=== PATIENT | female | born 1940 | race Caucasian/White ===

== ENCOUNTER 2016-09-07 19:30 | Inpatient (IN) | payer MEDICARE, BC ==
[2016-09-07 19:30] VITALS: BMI 29.7
--- NOTE | 2016-09-07 20:44 | C.PDOC ---
History Of Present Illness Patient is a 76 y/o female that presents to the ED for evaluation of left knee and left arm pain s/p fall today. Pt notes taking Aleve at home with no relief. Otherwise, denies any extremity weakness/numbness, skin changes, fever, or any other associated symptoms at this time. Time Seen by Provider: 09/07/16 20:15 Chief Complaint (Nursing): Lower Extremity Problem/Injury History Per: Patient History/Exam Limitations: no limitations Onset/Duration Of Symptoms: Days Current Symptoms Are (Timing): Still Present Recent travel outside of the [place]: No Additional History Per: Patient - Knee Description Of Injury: Fell Past Medical History Reviewed: Historical Data, Nursing Documentation, Vital Signs Vital Signs: Last Vital Signs Temp 98.0 F 09/07/16 19:45 Pulse 20 L 09/07/16 19:45 Resp BP 193/106 H 09/07/16 19:45 Pulse Ox 94 L 09/07/16 22:11 - Medical History PMH: Arthritis, Fractures (LEFT WRIST), Osteoporosis Denies: HIV, Chronic Kidney Disease - [facility] Procedures APPLICATION OF SPLINT (02/19/14) CL REDUC DISLOC-WRIST (02/19/14) INJECT/INFUSE NEC (02/19/14) OP RED-INT FIX RAD/ULNA (03/11/14) Family History: States: Unknown Family Hx - Social History Hx Alcohol Use: No Hx Substance Use: No Review Of Systems Except As Marked, All Systems Reviewed And Found Negative. Constitutional: Negative for: Fever, Chills Cardiovascular: Negative for: Chest Pain, Palpitations Respiratory: Negative for: Cough, Shortness of Breath Gastrointestinal: Negative for: Nausea, Vomiting, Abdominal Pain Musculoskeletal: Positive for: Arm Pain (left), Leg Pain (left knee pain). Negative for: Shoulder Pain, Hand Pain, Foot Pain Skin: Negative for: Rash, Bruising Neurological: Negative for: Weakness, Numbness, Headache, Dizziness Physical Exam - Physical Exam Appears: Non-toxic, No Acute Distress Skin: Normal Color, Warm, Dry Head: Atraumatic, Normacephalic Eye(s): bilateral: Normal Inspection Neck: Normal ROM, Supple Chest: Symmetrical Extremity: Normal ROM (FROM of left wrist, left elbow, and left knee. ), Tenderness (tenderness to lateral aspect of left knee upon palpation; tenderness to left mid forearm, elbow, and mid humerus), No Pedal Edema, Capillary Refill (< 2 sec.), No Deformity, No Swelling (no swelling, warmth, or erythema to left knee, or left arm) Extremity: Bilateral: Normal Color And Temperature, Normal ROM Pulses: Left Radial: Normal, Right Radial: Normal, Left Dorsalis Pedis: Normal, Right Dorsalis Pedis: Normal Neurological/Psych: Oriented x3, Normal Speech, Normal Cognition, Normal Motor, Normal Sensation ED Course And Treatment O2 Sat by Pulse Oximetry: 94 (on RA) Pulse Ox Interpretation: Normal Progress Note: Blood work, left knee/elbow/forearm/humerus x-ray ordered and reviewed. Patient was given Toradol. - Scribe Statement The provider has reviewed the documentation as recorded by the Scribe Starr Patton All medical record entries made by the Scribe were at my direction and personally dictated by me. I have reviewed the chart and agree that the record accurately reflects my personal performance of the history, physical exam, medical decision making, and the department course for this patient. I have also personally directed, reviewed, and agree with the discharge instructions and disposition.
[2016-09-07 22:37] LABS: BASO % 0.5 % (0.0-2.0); EOS # 0.1 K/uL (0.0-0.7); HEMOGLOBIN 14.5 g/dL (11.0-16.0); LYMPH # 1.5 K/uL (1.0-4.3); LYMPH % 15.5 % (20.0-40.0); MEAN CELL VOLUME 88.7 fL (81.0-99.0); MEAN CORPUSCULAR HEMOGLOBIN 29.7 pg (27.0-31.0); MEAN CORPUSCULAR HGB CONC 33.5 g/dL (33.0-37.0); MEAN PLATELET VOLUME 7.8 fL (7.2-11.7); MONO # 0.6 K/uL (0.0-0.8); MONO % 6.7 % (0.0-10.0); NEUT # 7.4 K/uL (1.8-7.0); NEUT % 76.3 % (50.0-75.0); NRBC % 0.1 % (0.0-2.0); RBC 4.89 Mil/uL (3.80-5.20); RED CELL DISTRIBUTION WIDTH 14.2 % (11.5-14.5); WHITE BLOOD COUNT 9.6 K/uL (4.8-10.8)
[2016-09-07 22:44] LABS: ALBUMIN 4.3 g/dL (3.5-5.0)
[2016-09-07 22:47] LABS: ALB/GLOB RATIO 1.3 (1.0-2.1); ALT/SGPT 31 U/L (9-52); AST/SGOT 25 U/L (14-36); BLOOD UREA NITROGEN 15 mg/dL (7-17); GFR AFRICAN-AMERICAN > 60; GFR NON-AFRICAN AMERICAN > 60
[2016-09-07 22:48] LABS: CALCIUM 9.4 mg/dl (8.6-10.4)
[2016-09-07] MEDS ORDERED: Oxycodone/Acetaminophen 5/325 mg Tab PO PRN (23:54)
[2016-09-08] MEDS: Enoxaparin 40 mg Syringe SC SCH (09:04)
--- NOTE | 2016-09-08 09:22 | RAD ---
PROCEDURE: Radiographs of the left elbow. HISTORY: fall pain COMPARISON: No prior. FINDINGS: BONES: Normal. No fracture. JOINTS: Normal. No osteoarthritis. SOFT TISSUES: Normal. JOINT EFFUSION: None. OTHER FINDINGS: None IMPRESSION: Unremarkable radiographs of the left elbow.
--- NOTE | 2016-09-08 09:26 | RAD ---
PROCEDURE: Radiographs of the Left Forearm HISTORY: fall pain COMPARISON: None available. TECHNIQUE: Frontal and lateral views obtained. FINDINGS: BONES: No acute fracture. Age indeterminate fracture distal radius. JOINT SPACES: Unremarkable. OTHER FINDINGS: None. IMPRESSION: No acute findings related to/accounting for the clinical presentation.
--- NOTE | 2016-09-08 09:30 | RAD ---
PROCEDURE: Radiographs of the left humerus. HISTORY: fall pain COMPARISON: None. FINDINGS: BONES: Normal. No fracture or focal lesion. SOFT TISSUES: Normal. OTHER FINDINGS: None. IMPRESSION: No acute findings related to/accounting for the clinical presentation. No preliminary report provided by emergency department personnel.
[2016-09-08] MEDS ORDERED: Oxycodone/Acetaminophen 5/325 mg Tab PO PRN (11:44)
--- NOTE | 2016-09-08 12:34 | RAD ---
PROCEDURE: Left Knee Radiographs. HISTORY: Pain. COMPARISON: None. FINDINGS: BONES: Normal. No fracture. Diffuse osteopenia suggests osteoporosis. JOINTS: Normal. Moderate patellofemoral osteoarthritis is manifest by irregular cortical sclerosis. JOINT EFFUSION: None. OTHER FINDINGS: Vascular soft tissue calcifications are identified posteriorly. Send. IMPRESSION: Mild osteoarthritis. Diffuse osteopenia suggests osteoporosis. No acute fracture or dislocation identified.
--- NOTE | 2016-09-08 23:16 | CP.PCM.HP ---
History of Present Illness - History of Present Illness History of Present Illness: CC: intractable left knee pain HPI: Patient is a 76 y/o female who had no significant PMH, presents to the ED for evaluation of left knee and left arm pain s/p fall today since then she cannot walk and have left knee swelling and crepitations. Pt notes taking Aleve at home with no relief. Otherwise, denies any extremity weakness/numbness, skin changes, fever, or any other associated symptoms at this time.pt has allergies to multiple pain medications Present on Admission - Present on Admission Any Indicators Present on Admission: Yes Review of Systems - Review of Systems Systems not reviewed;Unavailable: Acuity of Condition All systems: reviewed and no additional remarkable complaints except (pain & swelling in left knee) Past Patient History - Infectious Disease Hx of Infectious Diseases: None - Past Medical History & Family History Past Medical History?: Yes - Past Social History Smoking Status: Former Smoker - CARDIAC Hx Cardiac Disorders: No - PULMONARY Hx Respiratory Disorders: No - NEUROLOGICAL Hx Neurological Disorder: No - HEENT Hx HEENT Problems: No Hx Cataracts: Yes Hx Glaucoma: Yes - RENAL Hx Chronic Kidney Disease: No - ENDOCRINE/METABOLIC Hx Endocrine Disorders: No - HEMATOLOGICAL/ONCOLOGICAL Hx Human Immunodeficiency Virus (HIV): No - INTEGUMENTARY Hx Dermatological Problems: No - MUSCULOSKELETAL/RHEUMATOLOGICAL Hx Falls: Yes - GASTROINTESTINAL Hx Gastrointestinal Disorders: No - GENITOURINARY/GYNECOLOGICAL Hx Genitourinary Disorders: No - PSYCHIATRIC Hx Substance Use: No - SURGICAL HISTORY Hx Surgeries: Yes Hx Cataract Extraction: Yes (BILAT IOL) - ANESTHESIA Hx Anesthesia: Yes Hx Anesthesia Reactions: No Hx Malignant Hyperthermia: No Meds Allergies/Adverse Reactions: Allergies Allergy/AdvReac Type Severity Reaction Status Date / Time acetaminophen [From Percocet] AdvReac Verified 09/07/16 20:52 metronidazole [From Flagyl] AdvReac Verified 09/07/16 20:50 oxycodone [From Percocet] AdvReac Verified 09/07/16 20:52 Physical Exam - Constitutional Appears: In Acute Distress Additional comments: moderate pain, inability to walk - Eye Exam Eye Exam: EOMI, Normal appearance, PERRL Pupil Exam: NORMAL ACCOMODATION, PERRL - Neck Exam Neck exam: Positive for: Normal Inspection - Respiratory Exam Respiratory Exam: Clear to Auscultation Bilateral, NORMAL BREATHING PATTERN - Cardiovascular Exam Cardiovascular Exam: REGULAR RHYTHM - GI/Abdominal Exam GI & Abdominal Exam: Normal Bowel Sounds, Soft. absent: Tenderness - Rectal Exam Rectal Exam: Deferred - Extremities Exam Additional comments: Normal ROM (FROM of left wrist, left elbow, and left knee. ), Tenderness ( tenderness to lateral aspect of left knee upon palpation; tenderness to left mid forearm, elbow, and mid humerus), No Pedal Edema, Capillary Refill (< 2 sec. ), No Deformity, left knee has swelling, absence of hollow on medial aspect of left knee Results - Vital Signs Recent Vital Signs: Last Vital Signs Temp 98.6 F 09/08/16 15:15 Pulse 82 09/08/16 15:15 Resp 20 09/08/16 15:15 BP 144/81 09/08/16 15:15 Pulse Ox 96 09/08/16 15:15 - Labs Result Diagrams: 09/07/16 22:18 09/07/16 22:18 Labs: Laboratory Results - last 24 hr 09/08/16 09/08/16 09/08/16 08:34 08:34 08:34 ESR 15 Uric Acid 3.1 Rheum Arthritis Panel Negative Assessment & Plan (1) Traumatic arthritis of knee Assessment and Plan: rule out torn anterior cruciate ligament orthopedics consult i Discussed the case with Status: Acute
[2016-09-09] MEDS ORDERED: Pneumococcal 23-Valent Vaccine IM ONE (10:00)
[2016-09-09] MEDS: Enoxaparin 40 mg Syringe SC SCH (10:11)
[2016-09-09] MEDS: Lidocaine 5% Patch TD SCH (14:55)
--- NOTE | 2016-09-09 21:44 | CT ---
EXAM: CT Left Lower Extremity Without Intravenous Contrast, Knee CLINICAL HISTORY: 76 years old, female; Pain; Knee; Left; Additional info: L knee pain TECHNIQUE: Axial computed tomography images of the left knee without intravenous contrast. This CT exam was performed using one or more of the following dose reduction techniques: automated exposure control, adjustment of the mA and/or kV according to patient size, and/or use of iterative reconstruction technique. Coronal and sagittal reformatted images were created and reviewed. COMPARISON: No relevant prior studies available. FINDINGS: Small joint effusion. Evidence of cortical disruption involving the medial tibial spine concerning for fracture. Evidence of additional subtle irregularity involving anterior lateral tibial plateau. Enthesophyte formation involving the patella. No dislocation. Osteopenia/osteoporosis. Vascular calcification. IMPRESSION: Evidence of cortical disruption involving the medial tibial spine concerning for fracture. Evidence of additional subtle irregularity involving anterior lateral tibial plateau. Small joint effusion. MRI can provide more sensitive evaluation for bone marrow edema as well as evaluation for soft tissue injury. Additional details/findings as above.
--- NOTE | 2016-09-10 01:39 | CP.PCM.PN ---
Subjective - Date & Time of Evaluation Date of Evaluation: 09/09/16 Time of Evaluation: 21:00 - Subjective Subjective: pT SEEN AND EXAMINED, IS IMPROVING Objective - Vital Signs/Intake and Output Vital Signs (last 24 hours): Temp Pulse Resp BP Pulse Ox 98.7 F 107 H 20 131/73 95 09/09/16 23:15 09/09/16 23:15 09/09/16 23:15 09/09/16 23:15 09/09/16 23:15 Intake and Output: 09/09/16 09/10/16 18:59 06:59 Intake Total 300 Output Total 500 Balance -200 - Medications Medications: Current Medications Enoxaparin Sodium (Lovenox) 40 mg SC DAILY [facility] Last Admin: 09/09/16 10:11 Dose: 40 mg Gabapentin (Neurontin) 300 mg PO BID [facility] Ibuprofen (Motrin Tab) 600 mg PO TID PRN PRN Reason: Pain, moderate (4-7) Last Admin: 09/09/16 22:48 Dose: 600 mg Lidocaine (Lidoderm) 1 ea TD DAILY [facility] Last Admin: 09/09/16 14:55 Dose: 1 ea Losartan Potassium (Cozaar) 25 mg PO DAILY [facility] Last Admin: 09/09/16 10:11 Dose: 25 mg Zolpidem Tartrate (Ambien) 5 mg PO HS PRN PRN Reason: Insomnia Last Admin: 09/09/16 22:49 Dose: 5 mg Assessment and Plan (1) Traumatic arthritis of knee Status: Acute
[2016-09-10] MEDS: Enoxaparin 40 mg Syringe SC SCH (09:31)
[2016-09-10] MEDS: Lidocaine 5% Patch TD SCH (09:40)
[2016-09-10] MEDS ORDERED: Ergocalciferol 50,000 Intl Units Cap PO SCH ×2 (17:45→18:00)
--- NOTE | 2016-09-10 21:40 | CP.PCM.PN ---
Subjective - Date & Time of Evaluation Date of Evaluation: 09/10/16 Time of Evaluation: 10:20 - Subjective Subjective: Pt seen and examined, charts and labs reviewed is improving Objective - Vital Signs/Intake and Output Vital Signs (last 24 hours): Temp Pulse Resp BP Pulse Ox 98.9 F 93 H 20 135/75 96 09/10/16 15:37 09/10/16 15:37 09/10/16 15:37 09/10/16 15:37 09/10/16 15:37 - Medications Medications: Current Medications Enoxaparin Sodium (Lovenox) 40 mg SC DAILY [facility] Last Admin: 09/10/16 09:31 Dose: 40 mg Ergocalciferol (Drisdol 50,000 Intl Units Cap) 1 cap PO Q7D [facility] Last Admin: 09/10/16 17:53 Dose: 1 cap Gabapentin (Neurontin) 300 mg PO BID [facility] Last Admin: 09/10/16 17:53 Dose: 300 mg Ibuprofen (Motrin Tab) 600 mg PO TID PRN PRN Reason: Pain, moderate (4-7) Last Admin: 09/10/16 19:54 Dose: 600 mg Lactulose (Enulose) 20 gm PO HS [facility] Lidocaine (Lidoderm) 1 ea TD DAILY [facility] Last Admin: 09/10/16 09:40 Dose: 1 ea Losartan Potassium (Cozaar) 25 mg PO DAILY [facility] Last Admin: 09/10/16 09:31 Dose: 25 mg Zolpidem Tartrate (Ambien) 5 mg PO HS PRN PRN Reason: Insomnia Last Admin: 09/09/16 22:49 Dose: 5 mg Assessment and Plan (1) Traumatic arthritis of knee Status: Acute
[2016-09-11] MEDS: Enoxaparin 40 mg Syringe SC SCH (10:04)
[2016-09-11] MEDS: Lidocaine 5% Patch TD SCH (10:05)
--- NOTE | 2016-09-11 11:52 | MRI ---
MRI left knee History: Intractable pain. Injury. Comparison: 09/09/2016 Technique: Multi-echo multiplanar sequences were performed through the left knee without the use of intravenous contrast. Findings: Thinning and fraying with increased signal seen within the proximal and midportion of the anterior cruciate ligament suggestive for partial tearing with an associated interstitial delamination and moderate to high grade sprain. Posterior cruciate ligament is preserved. Globular grade 2 intrasubstance degeneration/partial intrasubstance tearing in the posterior horn of the medial meniscus. Linear grade 1 intrasubstance degeneration and or partial intrasubstance tearing in the posterior horn the lateral meniscus. Medial collateral ligament is preserved. High-grade strain versus partial tearing of the fibular collateral ligament. High grade strain of the biceps femoris tendon attachment. Moderate to high grade strain of the popliteus tendon. Quadriceps tendon is preserved. Patellar tendon is preserved. Moderate grade strain of the lateral patellar retinaculum. Patellar cartilage is preserved. Mild to moderate cartilage thinning and loss involving the femorotibial joint space. Moderate suprapatellar joint effusion. Small posterior Pelletier's cyst. Curvilinear decreased T1 signal with exuberant surrounding reactive edema seen within the posterior lateral femoral condyle at the articular surface suggestive for subchondral fracturing versus stress injury versus severe osteochondral change versus additional etiology. Milder signal abnormality seen at the medial tibial spine at the proximal tibia at the articular surface also suggestive for small subchondral osseous injury and or stress injury and or osteochondral change. Clinical correlation. Lobulated 2 centimeter focal area of signal abnormality seen within the distal medullary cavity of the distal femur with adjacent 7 millimeter rounded focal area of signal abnormality. These findings may represent focal chondroid lesions versus focal avascular necrosis versus additional etiology. Clinical correlation. Impression: 1. Curvilinear decreased T1 signal with exuberant surrounding reactive edema seen within the posterior lateral femoral condyle at the articular surface suggestive for subchondral fracturing versus stress injury versus severe osteochondral change versus additional etiology. 2. Milder signal abnormality seen at the medial tibial spine at the proximal tibia at the articular surface also suggestive for small subchondral osseous injury and or stress injury and or osteochondral change. Clinical correlation. 3. Lobulated 2 centimeter focal area of signal abnormality seen within the distal medullary cavity of the distal femur with adjacent 7 millimeter rounded focal area of signal abnormality. These findings may represent focal chondroid lesions versus focal avascular necrosis versus additional etiology. Clinical correlation. 4. Thinning and fraying with increased signal seen within the proximal and midportion of the anterior cruciate ligament suggestive for partial tearing with an associated interstitial delamination and moderate to high grade sprain. 5. Globular grade 2 intrasubstance degeneration/partial intrasubstance tearing in the posterior horn of the medial meniscus. 6. Linear grade 1 intrasubstance degeneration and or partial intrasubstance tearing in the posterior horn the lateral meniscus. 7. High-grade strain versus partial tearing of the fibular collateral ligament. High grade strain of the biceps femoris tendon attachment. Moderate to high grade strain of the popliteus tendon. 8. Moderate grade strain of the lateral patellar retinaculum. 9. Mild to moderate cartilage thinning and loss involving the femorotibial joint space. 10. Moderate suprapatellar joint effusion. 11. Small posterior Pelletier's cyst.
--- NOTE | 2016-09-11 14:16 | CP.PCM.PN ---
Subjective - Date & Time of Evaluation Date of Evaluation: 09/11/16 Time of Evaluation: 20:00 - Subjective Subjective: Pt seen and examined, c/o left knee pain, is for MRI of knee and orthopedic eval Objective - Vital Signs/Intake and Output Vital Signs (last 24 hours): Temp Pulse Resp BP Pulse Ox 97.4 F L 91 H 80 H 143/81 95 09/11/16 07:25 09/11/16 07:25 09/11/16 07:25 09/11/16 07:25 09/11/16 07:25 Intake and Output: 09/11/16 09/11/16 06:59 18:59 Intake Total 240 Balance 240 - Medications Medications: Current Medications Enoxaparin Sodium (Lovenox) 40 mg SC DAILY [facility] Last Admin: 09/11/16 10:04 Dose: 40 mg Ergocalciferol (Drisdol 50,000 Intl Units Cap) 1 cap PO Q7D [facility] Last Admin: 09/10/16 17:53 Dose: 1 cap Gabapentin (Neurontin) 300 mg PO BID [facility] Last Admin: 09/11/16 10:04 Dose: 300 mg Ibuprofen (Motrin Tab) 600 mg PO TID PRN PRN Reason: Pain, moderate (4-7) Last Admin: 09/11/16 07:13 Dose: 600 mg Lactulose (Enulose) 20 gm PO HS [facility] Last Admin: 09/10/16 22:15 Dose: Not Given Lidocaine (Lidoderm) 1 ea TD DAILY [facility] Last Admin: 09/11/16 10:05 Dose: 1 ea Losartan Potassium (Cozaar) 25 mg PO DAILY [facility] Last Admin: 09/11/16 10:04 Dose: 25 mg Zolpidem Tartrate (Ambien) 5 mg PO HS PRN PRN Reason: Insomnia Last Admin: 09/11/16 01:24 Dose: 5 mg Assessment and Plan (1) Traumatic arthritis of knee Status: Acute
--- NOTE | 2016-09-12 08:03 | CP.PCM.PN ---
Subjective - Date & Time of Evaluation Date of Evaluation: 09/12/16 Time of Evaluation: 08:01 - Subjective Subjective: Patient states pain in her knee is more controlled now. When asked about her toe , she says she hit it, but only has a little pain. Review of Systems - Review of Systems All systems: reviewed and no additional remarkable complaints except - Cardiovascular Cardiovascular: UNREMARKABLE - Respiratory Respiratory: UNREMARKABLE - Gastrointestinal Gastrointestinal: UNREMARKABLE - Musculoskeletal Musculoskeletal: As Par HPI - Integumentary Integumentary: As Per HPI - Neurological Neurological: UNREMARKABLE - Hematologic/Lymphatic Hematologic: UNREMARKABLE Objective - Vital Signs/Intake and Output Vital Signs (last 24 hours): Temp Pulse Resp BP Pulse Ox 97.4 F L 86 18 159/89 H 95 09/12/16 07:10 09/12/16 07:10 09/12/16 07:10 09/12/16 07:10 09/12/16 07:10 - Medications Medications: Current Medications Enoxaparin Sodium (Lovenox) 40 mg SC DAILY [facility] Last Admin: 09/11/16 10:04 Dose: 40 mg Ergocalciferol (Drisdol 50,000 Intl Units Cap) 1 cap PO Q7D [facility] Last Admin: 09/10/16 17:53 Dose: 1 cap Gabapentin (Neurontin) 300 mg PO BID [facility] Last Admin: 09/11/16 18:22 Dose: 300 mg Ibuprofen (Motrin Tab) 600 mg PO TID PRN PRN Reason: Pain, moderate (4-7) Last Admin: 09/11/16 22:01 Dose: 600 mg Lactulose (Enulose) 20 gm PO HS [facility] Last Admin: 09/11/16 22:02 Dose: Not Given Lidocaine (Lidoderm) 1 ea TD DAILY [facility] Last Admin: 09/11/16 10:05 Dose: 1 ea Losartan Potassium (Cozaar) 25 mg PO DAILY [facility] Last Admin: 09/11/16 10:04 Dose: 25 mg Zolpidem Tartrate (Ambien) 5 mg PO HS PRN PRN Reason: Insomnia Last Admin: 09/11/16 22:01 Dose: 5 mg - Constitutional Appears: Well, No Acute Distress - Head Exam Head Exam: ATRAUMATIC - Respiratory Exam Respiratory Exam: NORMAL BREATHING PATTERN - Cardiovascular Exam Additional comments: +DP/PT pulse LLE - Extremities Exam Additional comments: Sensation intact LLE, TTP left knee, knee immobilizer intact, calve ssoft NT neg homans - Neurological Exam Neurological Exam: Alert, Awake, Oriented x3 Neuro motor strength exam: Left Lower Extremity: 5 (ankle DF/PF) - Psychiatric Exam Psychiatric exam: Normal Affect, Normal Mood - Skin Skin Exam: Dry, Intact, Normal Color, Warm Additional comments: to knee, normal color left 2nd toe at DIP joint ecchymotic, swollen, mildly tender, +Flex/ext Assessment and Plan (1) Stress fracture, left femur, subsequent encounter for fracture with delayed healing Assessment & Plan: Knee immobilizer strict NWB at at times non operative per Dr. Dietz orthopedically stable for d/c VTE proph d/w Dr. Dietz, agrees with above Status: Acute (2) Closed fracture of left tibial plateau Status: Acute (3) Toe pain, left Assessment & Plan: XRAYS, r/o fx Status: Acute Radiology Interpretation - Geriatric Nurse Assistant Geriatric Nurse Assistant:: Radiologist - Radiology Interpretation #2 Interpretation: Patient Name / ID : VIRIDIANA MCDONALD / [id number] Exam Date : 09/11/2016 09:30:40 ( Approved ) Study Comment : Sex / Age : F / 76Y Creator : Jordon Ray MD Dictator : Jordon Ray MD Medical Microbiologist : Fire Observer : Jordon Ray MD Approver2 : Report Date : 09/11/2016 11:51:12 My Comment : MRI left knee History: Intractable pain. Injury. Comparison: 09/09/2016 Technique: Multi-echo multiplanar sequences were performed through the left knee without the use of intravenous contrast. Findings: Thinning and fraying with increased signal seen within the proximal and midportion of the anterior cruciate ligament suggestive for partial tearing with an associated interstitial delamination and moderate to high grade sprain. Posterior cruciate ligament is preserved. Globular grade 2 intrasubstance degeneration/partial intrasubstance tearing in the posterior horn of the medial meniscus. Linear grade 1 intrasubstance degeneration and or partial intrasubstance tearing in the posterior horn the lateral meniscus. Medial collateral ligament is preserved. High-grade strain versus partial tearing of the fibular collateral ligament. High grade strain of the biceps femoris tendon attachment. Moderate to high grade strain of the popliteus tendon. Quadriceps tendon is preserved. Patellar tendon is preserved. Moderate grade strain of the lateral patellar retinaculum. Patellar cartilage is preserved. Mild to moderate cartilage thinning and loss involving the femorotibial joint space. Moderate suprapatellar joint effusion. Small posterior Pelletier's cyst. Curvilinear decreased T1 signal with exuberant surrounding reactive edema seen within the posterior lateral femoral condyle at the articular surface suggestive for subchondral fracturing versus stress injury versus severe osteochondral change versus additional etiology. Milder signal abnormality seen at the medial tibial spine at the proximal tibia at the articular surface also suggestive for small subchondral osseous injury and or stress injury and or osteochondral change. Clinical correlation. Lobulated 2 centimeter focal area of signal abnormality seen within the distal medullary cavity of the distal femur with adjacent 7 millimeter rounded focal area of signal abnormality. These findings may represent focal chondroid lesions versus focal avascular necrosis versus additional etiology. Clinical correlation. Impression: 1. Curvilinear decreased T1 signal with exuberant surrounding reactive edema seen within the posterior lateral femoral condyle at the articular surface suggestive for subchondral fracturing versus stress injury versus severe osteochondral change versus additional etiology. 2. Milder signal abnormality seen at the medial tibial spine at the proximal tibia at the articular surface also suggestive for small subchondral osseous injury and or stress injury and or osteochondral change. Clinical correlation. 3. Lobulated 2 centimeter focal area of signal abnormality seen within the distal medullary cavity of the distal femur with adjacent 7 millimeter rounded focal area of signal abnormality. These findings may represent focal chondroid lesions versus focal avascular necrosis versus additional etiology. Clinical correlation. 4. Thinning and fraying with increased signal seen within the proximal and midportion of the anterior cruciate ligament suggestive for partial tearing with an associated interstitial delamination and moderate to high grade sprain. 5. Globular grade 2 intrasubstance degeneration/partial intrasubstance tearing in the posterior horn of the medial meniscus. 6. Linear grade 1 intrasubstance degeneration and or partial intrasubstance tearing in the posterior horn the lateral meniscus. 7. High-grade strain versus partial tearing of the fibular collateral ligament. High grade strain of the biceps femoris tendon attachment. Moderate to high grade strain of the popliteus tendon. 8. Moderate grade strain of the lateral patellar retinaculum. 9. Mild to moderate cartilage thinning and loss involving the femorotibial joint space. 10. Moderate suprapatellar joint effusion. 11. Small posterior Pelletier's cyst. atient Name / ID : VIRIDIANA MCDONALD / [id number] Exam Date : 09/09/2016 20:41:30 ( Approved ) Study Comment : Sex / Age : F / 76Y Creator : Sandra Naidu MD Dictator : Medical Microbiologist : Fire Observer : Sandra Naidu MD Approver2 : Report Date : 09/09/2016 21:44:00 My Comment : [facility] Division of Radiology [address] [place] [address] Tel. no. Patient Name: HARRY KEMP Pt. Address: [address] [place] [address] Rec #: [id number] [place] [address]: Mirela LENNON, Moon Tovar Pt Order Location: [facility] : 1940 Female Age: 76 Order #: [id number] Reason for exam: L knee pain CT Scan EXT LOWER W/O CONTRAST LEFT Exam Date: 09/09/16 This imaging exam was performed at [facility] EXAM: CT Left Lower Extremity Without Intravenous Contrast, Knee CLINICAL HISTORY: 76 years old, female; Pain; Knee; Left; Additional info: L knee pain TECHNIQUE: Axial computed tomography images of the left knee without intravenous contrast. This CT exam was performed using one or more of the following dose reduction techniques: automated exposure control, adjustment of the mA and/or kV according to patient size, and/or use of iterative reconstruction technique. Coronal and sagittal reformatted images were created and reviewed. COMPARISON: No relevant prior studies available. FINDINGS: Small joint effusion. Evidence of cortical disruption involving the medial tibial spine concerning for fracture. Evidence of additional subtle irregularity involving anterior lateral tibial plateau. Enthesophyte formation involving the patella. No dislocation. Osteopenia/osteoporosis. Vascular calcification. IMPRESSION: Evidence of cortical disruption involving the medial tibial spine concerning for fracture. Evidence of additional subtle irregularity involving anterior lateral tibial plateau. Small joint effusion. MRI can provide more sensitive evaluation for bone marrow edema as well as evaluation for soft tissue injury. Additional details/findings as above. Dictated By: Sandra Naidu MD Dictated Date/Time: 09/09/162143 Signed By: Sandra Naidu Date Signed: [id number] Transcribed By: [facility] Transcribe Date/Time : 09/09/162143 TAMIA/RAN
[2016-09-12] MEDS: Lidocaine 5% Patch TD SCH (10:55)
[2016-09-12] MEDS: Enoxaparin 40 mg Syringe SC SCH (10:55)
--- NOTE | 2016-09-12 11:48 | RAD ---
PROCEDURE: Radiographs of the right 2nd toe HISTORY: pain, ecchymosis COMPARISON: None TECHNIQUE: AP, oblique and lateral radiographs of the 2nd toe. FINDINGS: There is question of an acute nondisplaced fracture in the lateral base of the middle phalanx of the 2nd toe.There is diffuse bone demineralization. Bone alignment is normal. There is mild soft tissue swelling IMPRESSION: Question of acute nondisplaced fracture in the lateral base of the middle phalanx of the 2nd toe.
--- NOTE | 2016-09-12 12:28 | CP.PCM.PN ---
Subjective - Date & Time of Evaluation Date of Evaluation: 09/12/16 Time of Evaluation: 11:00 - Subjective Subjective: Pt seen and examined today, c/o left knee pain, improved and better controlled than yesterday, denies any numbness/tingling on LE No overnight events reported by RN Objective - Vital Signs/Intake and Output Vital Signs (last 24 hours): Temp Pulse Resp BP Pulse Ox 97.4 F L 86 18 159/89 H 95 09/12/16 07:10 09/12/16 07:10 09/12/16 07:10 09/12/16 07:10 09/12/16 07:10 - Medications Medications: Current Medications Enoxaparin Sodium (Lovenox) 40 mg SC DAILY [facility] Last Admin: 09/12/16 10:55 Dose: 40 mg Ergocalciferol (Drisdol 50,000 Intl Units Cap) 1 cap PO Q7D [facility] Last Admin: 09/10/16 17:53 Dose: 1 cap Gabapentin (Neurontin) 300 mg PO BID [facility] Last Admin: 09/12/16 10:56 Dose: 300 mg Ibuprofen (Motrin Tab) 600 mg PO TID PRN PRN Reason: Pain, moderate (4-7) Last Admin: 09/12/16 10:59 Dose: 600 mg Lactulose (Enulose) 20 gm PO HS [facility] Last Admin: 09/11/16 22:02 Dose: Not Given Lidocaine (Lidoderm) 1 ea TD DAILY [facility] Last Admin: 09/12/16 10:55 Dose: 1 ea Losartan Potassium (Cozaar) 25 mg PO DAILY [facility] Last Admin: 09/12/16 10:56 Dose: 25 mg Zolpidem Tartrate (Ambien) 5 mg PO HS PRN PRN Reason: Insomnia Last Admin: 09/11/16 22:01 Dose: 5 mg - Constitutional Appears: Well, No Acute Distress - Respiratory Exam Respiratory Exam: Clear to Ausculation Bilateral, NORMAL BREATHING PATTERN - Cardiovascular Exam Cardiovascular Exam: REGULAR RHYTHM, +S2 - Extremities Exam Extremities Exam: Tenderness (left LE , knee BRACE IN PLACE ) - Neurological Exam Neurological Exam: Alert, Awake, Oriented x3 Assessment and Plan - Assessment and Plan (Free Text) Assessment: A/P 76 yr old female admitted for left knee pain s/p fall MRI- LE -. 1urvilinear decreased T1 signal with exuberant surrounding reactive edema seen within the posterior lateral femoral condyle at the articular surface suggestive for subchondral fracturing versus stress injury versus severe osteochondral change versus additional etiology. 2. Milder signal abnormality seen at the medial tibial spine at the proximal tibia at the articular surface also suggestive for small subchondral osseous injury and or stress injury and or osteochondral change. Clinical correlation. 3. Lobulated 2 centimeter focal area of signal abnormality seen within the distal medullary cavity of the distal femur with adjacent 7 millimeter rounded focal area of signal abnormality. These findings may represent focal chondroid lesions versus focal avascular necrosis versus additional etiology. Clinical correlation. 4. Thinning and fraying with increased signal seen within the proximal and midportion of the anterior cruciate ligament suggestive for partial tearing with an associated interstitial delamination and moderate to high grade sprain. 5. Globular grade 2 intrasubstance degeneration/partial intrasubstance tearing in the posterior horn of the medial meniscus. 6. Linear grade 1 intrasubstance degeneration and or partial intrasubstance tearing in the posterior horn the lateral meniscus. 7. High-grade strain versus partial tearing of the fibular collateral ligament. High grade strain of the biceps femoris tendon attachment. Moderate to high grade strain of the popliteus tendon. 8. Moderate grade strain of the lateral patellar retinaculum. 9. Mild to moderate cartilage thinning and loss involving the femorotibial joint space. 10. Moderate suprapatellar joint effusion. 11. Small posterior Pelletier's cyst. seen by Dr. Orlando non operative per Dr. Dietz and orthopedically stable for d/c, keep Knee immobilizer strict NWB at at times and orthopedically stable for d/c Pt accepted at [facility] for rehab d/W with Dr. Shelton, stable for discharge to [facility] and Dr. Shelton will follow the patient at [facility]
[2016-09-12 16:32] VITALS: BP 127/68; PULSE 77; RESP 20; TEMP 98.3; O2SAT 94
--- NOTE | 2016-09-12 22:31 | CP.PCM.DIS ---
Provider - Provider Date of Admission: 09/09/16 11:45 Attending physician: Corbin Shelton MD Time Spent in preparation of Discharge (in minutes): 45 Diagnosis - Discharge Diagnosis (1) Traumatic arthritis of knee Status: Acute Hospital Course - Lab Results Lab Results: Most Recent Lab Values WBC 9.6 K/uL (4.8-10.8) D 09/07/16 22:18 RBC 4.89 Mil/uL (3.80-5.20) 09/07/16 22:18 Hgb 14.5 g/dL (11.0-16.0) 09/07/16 22:18 Hct 43.4 % (34.0-47.0) 09/07/16 22:18 MCV 88.7 fL (81.0-99.0) D 09/07/16 22:18 MCH 29.7 pg (27.0-31.0) 09/07/16 22:18 MCHC 33.5 g/dL (33.0-37.0) 09/07/16 22:18 RDW 14.2 % (11.5-14.5) 09/07/16 22:18 Plt Count 216 K/uL (130-400) 09/07/16 22:18 MPV 7.8 fL (7.2-11.7) 09/07/16 22:18 Neut % (Auto) 76.3 % (50.0-75.0) H 09/07/16 22:18 Lymph % (Auto) 15.5 % (20.0-40.0) L 09/07/16 22:18 Grayson % (Auto) 6.7 % (0.0-10.0) 09/07/16 22:18 Eos % (Auto) 1.0 % (0.0-4.0) 09/07/16 22:18 Baso % (Auto) 0.5 % (0.0-2.0) 09/07/16 22:18 Neut # 7.4 K/uL (1.8-7.0) H 09/07/16 22:18 Lymph # 1.5 K/uL (1.0-4.3) 09/07/16 22:18 Grayson # 0.6 K/uL (0.0-0.8) 09/07/16 22:18 Eos # 0.1 K/uL (0.0-0.7) 09/07/16 22:18 Baso # 0.0 K/uL (0.0-0.2) 09/07/16 22:18 ESR 15 mm/hr (0-20) 09/08/16 08:34 Sodium 140 mmol/L (132-148) 09/07/16 22:18 Potassium 4.0 mmol/L (3.6-5.2) 09/07/16 22:18 Chloride 101 mmol/L (98-107) 09/07/16 22:18 Carbon Dioxide 23 mmol/L (22-30) 09/07/16 22:18 Anion Gap 20 (10-20) 09/07/16 22:18 BUN 15 mg/dL (7-17) 09/07/16 22:18 Creatinine 0.6 MG/DL (0.7-1.2) L 09/07/16 22:18 Est GFR ( Amer) > 60 09/07/16 22:18 Est GFR (Non-Af Amer) > 60 09/07/16 22:18 Random Glucose 121 mg/dL (65-105) H 09/07/16 22:18 Uric Acid 3.1 mg/dL (2.2-7.5) 09/08/16 08:34 Calcium 9.4 mg/dl (8.6-10.4) 09/07/16 22:18 Total Bilirubin 0.7 mg/dL (0.2-1.3) 09/07/16 22:18 AST 25 U/L (14-36) 09/07/16 22:18 ALT 31 U/L (9-52) 09/07/16 22:18 Alkaline Phosphatase 116 U/L (38-126) 09/07/16 22:18 Total Protein 7.7 g/dL (6.3-8.3) 09/07/16 22:18 Albumin 4.3 g/dL (3.5-5.0) 09/07/16 22:18 Globulin 3.4 gm/dL (2.2-3.9) 09/07/16 22:18 Albumin/Globulin Ratio 1.3 (1.0-2.1) 09/07/16 22:18 Rheum Arthritis Panel Negative (NEGATIVE) 09/08/16 08:34 - Hospital Course Hospital Course: Pt seen and examined by me today, left knee pain is improved, denies any numbness and tingling also seen by Dr. Orlando non operative per Dr. Dietz and orthopedically stable for d/c, keep Knee immobilizer strict NWB at at times and orthopedically stable for d/c Pt accepted at [facility] for rehab stable for discharge to [facility] under my service, will follow the patient at [facility] Discharge Exam - Head Exam Head Exam: ATRAUMATIC - Eye Exam Eye Exam: EOMI, Normal appearance, PERRL Pupil Exam: NORMAL ACCOMODATION, PERRL - ENT Exam ENT Exam: Mucous Membranes Moist - Respiratory Exam Respiratory Exam: Clear to PA & Lateral, NORMAL BREATHING PATTERN - Cardiovascular Exam Cardiovascular Exam: REGULAR RHYTHM, +S1, +S2 - GI/Abdominal Exam GI & Abdominal Exam: Normal Bowel Sounds - Neurological Exam Neurological exam: Alert, CN II-XII Intact, Normal Gait, Oriented x3, Reflexes Normal - Psychiatric Exam Psychiatric exam: Normal Affect, Normal Mood Discharge Plan - Follow Up Plan Condition: GOOD Disposition: REHAB FACILITY/REHAB UNIT Instructions: Leg Fracture (DC), Fall Prevention for Older Adults (GEN), Fall Prevention (DC), Knee Immobilizer (DC) Additional Instructions: Please admit patient under Dr. Shelton service , call Dr. Shelton upon patient arrival to the facility f/u with Dr. Wesley office in 2 weeks Continue medication as per Med. Rec. Knee immobilizer to left leg at all times strict NWB to left leg at all times Referrals: Moon Bonner MD [Staff Provider] - Corbin Shelton MD [Staff Provider] -
== END 2016-09-12 17:11 | DRG 554 ==
LOC: C.ER 19:30 → C.9E 23:16 → C.6T 09-08 01:45 → OBSVTOIN 09-09 11:45
PROVIDERS: ADMIT Internal Medicine; ATTEND Internal Medicine
DX: M17.32 Unilateral post-traumatic osteoarthritis, left knee (principal); M71.20 Synovial cyst of popliteal space [Baker], unspecified knee; M84.378A Stress fracture, left toe(s), initial encounter for fracture; S46.219A Strain of muscle, fascia and tendon of other parts of biceps, unspecified arm, initial encounter; S72.92XS Unspecified fracture of left femur, sequela; M81.0 Age-related osteoporosis without current pathological fracture; W19.XXXS Unspecified fall, sequela; W19.XXXA Unspecified fall, initial encounter; Z91.81 History of falling; Z98.42 Cataract extraction status, left eye; Z98.41 Cataract extraction status, right eye; Z96.1 Presence of intraocular lens; Z87.891 Personal history of nicotine dependence